=== PATIENT | male | born 1985 | race African-American/Black ===

== ENCOUNTER 2019-09-24 15:34 | Emergency (ER) | payer BC, OTHER ==
--- NOTE | 2019-09-24 16:11 | ER Document Report ---
ED Medical Screen (RME) - General Chief Complaint: Ankle Swelling Stated Complaint: ANKLE SWELLING,ABNORMAL LABS Time Seen by Provider: 09/24/19 16:04 - HPI Notes: 09/24/19 16:10 33-year-old male with a history of pulmonary embolism, hypertension presents to emergency room from [facility] primary care office for abnormal EKG of a heart rate of 110 with elevated blood pressure today of 180/110. Patient also reports he been having bilateral edema and swelling in his ankles for the last 4 days. Patient states he had a PE back in 2009, was asymptomatic. Denies any chest pain shortness of breath, nausea, vomiting, diarrhea, headache, neck pain. Patient states he is concerned that he may be having another pulmonary embolism. Is not on any anticoagulant therapy. Denies any recent travel, clotting disorders, surgery, cancer treatments. I have greeted and performed a rapid initial assessment of this patient. A comprehensive ED assessment and evaluation of the patient, analysis of test results and completion of the medical decision making process will be conducted by additional ED providers. PHYSICAL EXAMINATION: GENERAL: Well-appearing, well-nourished and in no acute distress. HEAD: Atraumatic, normocephalic. EYES: Pupils equal round extraocular movements intact, conjunctiva are normal. NECK: Normal range of motion CV: Tachycardia LUNGS: No respiratory distress - Related Data Allergies/Adverse Reactions: droperidol [Droperidol] Allergy (Verified 09/24/19 16:04) ketorolac tromethamine [From Toradol] Allergy (Verified 09/24/19 16:04) Penicillins Allergy (Verified 09/24/19 16:04) ziprasidone HCl [From Geodon] Allergy (Verified 09/24/19 16:04) ziprasidone mesylate [From Geodon] Allergy (Verified 09/24/19 16:04) Past Medical History Neurological Medical History: Reports: Hx Migraine Psychiatric Medical History: Reports: Hx Anxiety, Hx Bipolar Disorder, Hx Depression Past Surgical History: Reports: Hx Appendectomy, Hx Oral Surgery - wisdom teeth - Immunizations Hx Diphtheria, Pertussis, Tetanus Vaccination: Yes Physical Exam - Vital signs Vitals: Temp Pulse Resp BP Pulse Ox 98.8 F 109 H 18 181/87 H 100 09/24/19 16:01 09/24/19 16:01 09/24/19 16:01 09/24/19 16:01 09/24/19 16:01 Course - Vital Signs Vital signs: Temp Pulse Resp BP Pulse Ox 98.8 F 109 H 18 181/87 H 100 09/24/19 16:01 09/24/19 16:01 09/24/19 16:01 09/24/19 16:01 09/24/19 16:01
[2019-09-24 16:46] LABS: APPEARANCE,URINE CLEAR; BILIRUBIN,URINE NEGATIVE (NEGATIVE); COLOR,URINE YELLOW; GLUCOSE, URINE NEGATIVE (NEGATIVE); KETONES,URINE NEGATIVE (NEGATIVE); LEUKOCYTE ESTERASE,URINE NEGATIVE (NEGATIVE); NITRITE,URINE NEGATIVE (NEGATIVE); PROTEIN,URINE 30 mg/dL (NEGATIVE); URINE SPECIFIC GRAVITY 1.025
--- NOTE | 2019-09-24 18:12 | ER Document Report ---
ED General - General Chief Complaint: Leg Swelling Stated Complaint: ANKLE SWELLING,ABNORMAL LABS Time Seen by Provider: 09/24/19 16:04 [facility] Care Provider: [facility] [[facility]] - Follow up as needed Mode of Arrival: Ambulatory Information source: Patient Notes: 33-year-old male presented to ED for swelling to both legs worse on the left. He was seen at [facility] and sent to the emergency room for an abnormal EKG with a heart rate of 110 and a blood pressure of 180/110. He states he did have a pulmonary emboli about 10 years ago he has had hypertension in the past. He states he has had the swelling to both legs much worse on the left for the last about the last 4 days. He denies any pain anywhere but states he does have a sensation like something is touching his left leg right leg. - HPI Onset: Other - See HPI Onset/Duration: Persistent Quality of pain: No pain Severity: None Pain Level: Denies Associated symptoms: Leg swelling. denies: Chest pain, Nonproductive cough, Productive cough, Sinus pain/drainage, Shortness of breath Exacerbated by: Denies Relieved by: Denies Similar symptoms previously: Yes Recently seen / treated by doctor: Yes - Related Data Allergies/Adverse Reactions: droperidol [Droperidol] Allergy (Verified 09/24/19 16:04) ketorolac tromethamine [From Toradol] Allergy (Verified 09/24/19 16:04) Penicillins Allergy (Verified 09/24/19 16:04) ziprasidone HCl [From Geodon] Allergy (Verified 09/24/19 16:04) ziprasidone mesylate [From Geodon] Allergy (Verified 09/24/19 16:04) Past Medical History - General Information source: Patient - Social History Smoking Status: Former Smoker Chew tobacco use (# tins/day): No Frequency of alcohol use: None Drug Abuse: Other - 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 Family History: Reviewed & Not Pertinent Patient has homicidal ideation: No - Past Medical History Cardiac Medical History: Reports: Hx Hypertension, Hx Pulmonary Embolism Pulmonary Medical History: Reports: None EENT Medical History: Reports: None Neurological Medical History: Reports: Hx Migraine Endocrine Medical History: Reports: None Renal/ Medical History: Reports: None Malignancy Medical History: Reports None GI Medical History: Reports: None Musculoskeletal Medical History: Reports None Skin Medical History: Reports None Psychiatric Medical History: Reports: Hx Anxiety, Hx Bipolar Disorder, Hx Depression Traumatic Medical History: Reports: None Infectious Medical History: Reports: None Past Surgical History: Reports: Hx Appendectomy, Hx Oral Surgery - wisdom teeth - Immunizations Hx Diphtheria, Pertussis, Tetanus Vaccination: Yes Review of Systems - Review of Systems Constitutional: No symptoms reported EENT: No symptoms reported Cardiovascular: No symptoms reported Respiratory: No symptoms reported Gastrointestinal: No symptoms reported Genitourinary: No symptoms reported Male Genitourinary: No symptoms reported Musculoskeletal: Leg swelling, Ankle swelling Skin: No symptoms reported Hematologic/Lymphatic: No symptoms reported Neurological/Psychological: No symptoms reported -: Yes All other systems reviewed and negative Physical Exam - Vital signs Vitals: Temp Pulse Resp BP Pulse Ox 98.8 F 109 H 18 181/87 H 100 09/24/19 16:01 09/24/19 16:01 09/24/19 16:01 09/24/19 16:01 09/24/19 16:01 Interpretation: Normal - General General appearance: Appears well, Alert - HEENT Head: Normocephalic, Atraumatic Eyes: Normal Pupils: PERRL - Respiratory Respiratory status: No respiratory distress Chest status: Nontender Breath sounds: Normal Chest palpation: Normal - Cardiovascular Rhythm: Regular Heart sounds: Normal auscultation Murmur: No - Abdominal Inspection: Normal Distension: No distension Bowel sounds: Normal Tenderness: Nontender Organomegaly: No organomegaly - Back Back: Normal, Nontender - Extremities General upper extremity: Normal inspection, Nontender, Normal color, Normal ROM, Normal temperature General lower extremity: Nontender, Normal color, Normal ROM, Normal temperature, Normal weight bearing. No: Mohinder's sign Calf: Other - Bilateral worse on the left Ankle: Edema - Bilateral worse on the left Foot: Edema - Bilateral worse on the left - Neurological Neuro grossly intact: Yes Cognition: Normal Orientation: AAOx4 [place] Coma Scale Eye Opening: Spontaneous [place]ir Coma Scale Verbal: Oriented Yahir Coma Scale Motor: Obeys Commands Yahir Coma Scale Total: 15 Speech: Normal Motor strength normal: LUE, RUE, LLE, RLE Sensory: Normal - Psychological Associated symptoms: Normal affect, Normal mood - Skin Skin Temperature: Warm Skin Moisture: Dry Skin Color: Normal Course - Re-evaluation Re-evalutation: 09/25/19 00:[address] and his Doppler with the patient. Written reports of labs and CT given the patient. I do not have the final report of the Doppler at the time of discharge. He was instructed to please follow-up with primary care by telephone tomorrow and schedule follow-up appointment. He verbalized understanding and agreement with treatment plan and patient was discharged home. - Vital Signs Vital signs: Temp Pulse Resp BP Pulse Ox 98.8 F 97 18 153/84 H 98 09/24/19 16:01 09/24/19 21:05 09/24/19 21:05 09/24/19 21:05 09/24/19 21:05 - Laboratory Result Diagrams: 09/24/19 17:48 09/24/19 17:48 Laboratory results interpreted by me: 09/24/19 09/24/19 09/24/19 16:25 17:48 17:48 RDW 14.1 H ALT 57 H Total Protein 9.3 H Albumin 5.1 H Urine Protein 30 H Urine Urobilinogen 4.0 H - Diagnostic Test Radiology reviewed: Image reviewed, Reports reviewed - EKG Interpretation by Me When compared to previous EKG there are: No significant change Additional EKG results interpreted by me: 09/24/19 21:02 Discussed the EKG from 2010 and the one from today with Dr. zamudio he did not notice any noticeable change except for maybe a little more hypertrophy. Patient has had not had any pain throughout his whole stay here. He states he had a sensation like somebody was touching his left leg but no other symptoms except for the peripheral edema on the left side greater than right. CT of abdomen pelvis chest with contrast was negative for any pulmonary emboli. Doppler was negative for any emboli. Patient will be discharged home with written reports to follow-up with his primary care. Patient verbalized understanding and agreement with this treatment plan. Discharge - Discharge Clinical Impression: Pedal edema, Nonacute chest pain Condition: Stable Disposition: HOME, SELF-CARE Additional Instructions: Edema, Peripheral You have swelling in your legs. This is called peripheral edema. It can be caused by "leaky capillaries," inflammation, disease of the leg veins, or excess salt and water in your body. Edema may be a sign of heart, kidney, or liver disease. A medical evaluation can determine if there is a serious underlying cause for your edema. Avoid prolonged standing. If you must sit for a long time, occasionally get up and walk around or elevate your legs. Support stockings can be helpful in limiting swelling. Often diuretic or water pills are used to remove excess salt and water from your body. Call the doctor or return if you develop increased swelling, pain, or redness, shortness of breath, chest pain, or any other significant change. I have given you a copy of your lab reports and your CT abdomen pelvis and chest. There is no pulmonary emboli noted on the CT. Your Doppler did not show any peripheral clots. I have also given you a copy of all of your lab reports. Please take all of these with you to your follow-up appointment with your primary care. FOLLOW-UP CARE: If you have been referred to a physician for follow-up care, call the physicians office for an appointment as you were instructed or within the next two days. If you experience worsening or a significant change in your symptoms, notify the physician immediately or return to the Emergency Department at any time for re-evaluation. Referrals: [facility] [Primary Care Provider] - Follow up as needed
[2019-09-24 18:16] LABS: ABSOLUTE LYMPHOCYTES (AUTO) 2.5 10^3/uL (0.5-4.7); ABSOLUTE MONOCYTES (AUTO) 0.7 10^3/uL (0.1-1.4); BASOPHILS % (AUTO) 0.4 % (0-2); EOSINOPHILS % (AUTO) 0.7 % (0-6); HEMATOCRIT 41.7 % (37.9-51.0); LYMPHOCYTES % (AUTO) 34.1 % (13-45); MEAN CORPUSCULAR HEMOGLOBIN 29.5 pg (27.0-33.4); MEAN CORPUSCULAR HGB CONC 33.5 g/dL (32.0-36.0); MEAN CORPUSCULAR VOLUME 88 fl (80-97); MONOCYTES % (AUTO) 9.7 % (3-13); PLATELET COUNT 192 10^3/uL (150-450); RED BLOOD COUNT 4.74 10^6/uL (4.35-5.55); RED CELL DISTRIBUTION WIDTH 14.1 % (11.5-14.0); SEGMENTED NEUTROPHILS % (AUTO) 55.1 % (42-78); TOTAL CELLS COUNTED % (AUTO) 100 %; WHITE BLOOD COUNT 7.3 10^3/uL (4.0-10.5)
[2019-09-24 18:39] LABS: ALBUMIN 5.1 g/dL (3.5-5.0); ALKALINE PHOSPHATASE 72 U/L (38-126); ANION GAP 10 (5-19); ASPARTATE AMINO TRANSFERASE 41 U/L (17-59); BILIRUBIN,DIRECT 0.1 mg/dL (0.0-0.4); BILIRUBIN,TOTAL 0.6 mg/dL (0.2-1.3); BLOOD UREA NITROGEN 13 mg/dL (7-20); CALCIUM 10.1 mg/dL (8.4-10.2); CARBON DIOXIDE 28 mmol/L (22-30); CHLORIDE 103 mmol/L (98-107); GLUCOSE 104 mg/dL (75-110); POTASSIUM 3.6 mmol/L (3.6-5.0); TOTAL PROTEIN 9.3 g/dL (6.3-8.2)
[2019-09-24 19:19] LABS: NT PRO BNP 28 pg/mL (<125)
[2019-09-24 19:20] LABS: TROPONIN I < 0.012 ng/mL
--- NOTE | 2019-09-24 19:27 | RADIOLOGY REPORT (SQ) ---
EXAM DESCRIPTION: CTA CHEST IMAGES COMPLETED DATE/TIME: 09/24/2019 7:06 pm REASON FOR STUDY: HR 110, hx of PE, abnormal ekg COMPARISON: 08/08/2010 TECHNIQUE: CT scan of the chest performed using helical scanning technique with dynamic intravenous contrast injection. Images reviewed with lung, soft tissue and bone windows. Reconstructed coronal and sagittal MPR images reviewed. Additional 3 dimensional post-processing performed to develop Maximal Intensity Projection images (NC P). All images stored on PACS. All CT scanners at this facility use dose modulation, iterative reconstruction, and/or weight based d osing when appropriate to reduce radiation dose to as low as reasonably achievable (ALARA). [facility]: Dose Right [facility]: CareDose [facility]: Dose Right [facility]: Teradose 4D [facility]: ImageVision CONTRAST TYPE AND DOSE: contrast/concentration: Isovue 350.00 mmol/ml; Total Contrast Delivered: 75. 0 ml; Total Saline Delivered: 80.0 ml Contrast bolus adequate for pulmonary arteries and aorta. RENAL FUNCTION: BUN 13 creatinine 1.13 RADIATION DOSE: CT Rad equipment meets quality standard of care and radiation dose reduction techniq ues were employed. CTDIvol: 19.8 - 24.4 mGy. DLP: 907 mGy-cm. . LIMITATIONS: Study slightly limited by suboptimal opacification of the pulmonary arteries. FINDINGS: LUNGS AND PLEURA: No masses, infiltrates, or pneumothorax. No pleural effusions or pleura l calcifications. AORTA AND GREAT VESSELS: No aneurysm. No dissection. HEART: No pericardial effusion. No significant coronary artery calcifications. PULMONARY ARTERIES: No large or central pulmonary emboli. HILAR AND MEDIASTINAL STRUCTURES: No identified masses or abnormal nodes. HARDWARE: None in the chest. UPPER ABDOMEN: No significant finding. THYROID AND OTHER SOFT TISSUES: No masses. No adenopathy. BONES: No acute or significant finding. 3D MIPS: Confirm above findings. OTHER: No other significant finding. IMPRESSION: 1. No obvious, central pulmonary emboli. Study is slightly limited. 2. No aortic aneurysm or dissection. COMMENT: Quality ID # [id number]: Final reports with documentation of one or more dose reduction techniques (e.g., Automated exposure control, adjustment of the mA and/or kV according to patient size, use of iterative reconstruction technique) TECHNICAL DOCUMENTATION: JOB ID: [id number] 2010 [employer]- All Rights Reserved Reading location - IP/workstation name: [email or web address]
--- NOTE | 2019-09-24 20:06 | EKG REPORT ---
SEVERITY:- BORDERLINE ECG - SINUS TACHYCARDIA PROBABLE LEFT ATRIAL ABNORMALITY BORDERLINE T ABNORMALITIES, INFERIOR LEADS : Confirmed by: Karli Millan MD 24-Sep-2019 20:05:27
--- NOTE | 2019-09-24 21:04 | RADIOLOGY REPORT (SQ) ---
Bilateral lower extremity venous Doppler ultrasound: 09/24/2019 8:02 PM CDT TECHNIQUE: Multiple grayscale and spectral Doppler images of the bilateral lower extremity veins were obtained. HISTORY: 33-year-old patient with bilateral lower extremity pain and swelling. FINDINGS: Normal compressibility and color Doppler images of the bilateral common femoral, femoral, popliteal veins were obtained. The visualized soft tissues appear grossly unremarkable. There are no findings to suggest deep vein thrombosis. IMPRESSION: There are no findings to suggest deep vein thrombosis within the bilateral lower extremities.
[2019-09-24 21:06] VITALS: BP 153/84
== END 2019-09-24 21:06 | disposition home or self-care (01) ==
LOC: ER 15:34
DX: R60.0 Localized edema (principal); R07.9 Chest pain, unspecified; I10 Essential (primary) hypertension; Z86.711 Personal history of pulmonary embolism; Z87.891 Personal history of nicotine dependence; Z88.8 Allergy status to other drugs, medicaments and biological substances; Z88.0 Allergy status to penicillin
CPT/HCPCS: 36415; 71275; 80053; 81001; 83880; 84484; 85025; 93005; 93010; 93970; 99284